=== PATIENT | male | born 1990 | race Two or more races ===

== ENCOUNTER 2021-12-11 09:14 | Emergency (ER) | payer OTHER ==
[~2021-12-11] VITALS: Ht 167.6 cm; Wt 99.8 kg
[2021-12-11] MEDS ORDERED: PRED20TA2 PO (12:25)
[2021-12-11] MEDS ORDERED: DIPH25CA66 PO (12:25)
[2021-12-11] MEDS ORDERED: diphenhdrAMINE HCL 50 MG/1 ML VL IM ONE (12:30)
[2021-12-11] MEDS ORDERED: methylPREDNISolone SOD SUCC 125 MG/2 ML VL IV ONE (12:30)
[2021-12-11 12:54] VITALS: BP 138/89
== END 2021-12-11 12:56 | disposition home or self-care (01) ==
LOC: ER 09:14
DX: T78.40XA Allergy, unspecified, initial encounter (principal); X58.XXXA Exposure to other specified factors, initial encounter
CPT/HCPCS: 96372; 96374; 99284; J1200; J2930